=== PATIENT | female | born 1995 | race Caucasian/White ===

== ENCOUNTER 2024-08-19 01:00 | Inpatient (IN) ==
[2024-08-19] MEDS ORDERED: Lidocaine 1% VIAL 10 MG/ML 30 ML VIAL INJ PRN (02:13)
[2024-08-19 02:54] LABS: ABS Lymphocytes 1.4 10^3/uL (1.0-4.8); ABS Monocytes 0.4 10^3/uL (0.0-0.9); ABS Neutrophils 10.2 10^3/uL (1.5-7.6); Eosinophil % 0.1 %; Hematocrit 38.1 % (35-45); Hemoglobin 13.1 g/dL (11.5-14.3); Lymphocyte % 11.3 %; Mean Corpuscular Hgb Conc 34.4 g/dL (31-36); Mean Corpuscular Volume 92.9 fL (80-97); Mean Platelet Volume 7.8 fL (7.5-11.2); Platelet Count 232 10^3/uL (150-450); Red Cell Distribution Width 12.8 % (12-17); White Blood Count 12.1 10^3/uL (3.8-11.8)
[2024-08-19] MEDS ORDERED: Glycerin ADULT 2.4 gm SUPP PR PRN (03:05)
[2024-08-19 03:21] LABS: Urine Benzodiazepine Screen None Detected (None Detect); Urine Cannabinoids Screen None Detected (None Detect); Urine Opiates Screen None Detected (None Detect)
[2024-08-19] MEDS ORDERED: Lactated Ringers 1000 ml BAG 1,000 ML IV SCH (04:00)
[2024-08-19] MEDS: Witch Hazel PAD JAR TOPICAL PRN (05:52)
[2024-08-19] MEDS: Dibucaine 1% OINT 28.35 GM TUBE PR PRN (05:52)
[2024-08-19] MEDS: Oxytocin in LR 20,000 MILLI.UNIT/1,000 ML BAG IV ONE (16:08)
[2024-08-19] MEDS: Buffered Lidocaine 1% SYRIN 1 ml INTRADERM ONE (16:08)
[2024-08-19] MEDS: Lactated Ringers 1000 ml BAG 1,000 ML IV ONE (16:08)
[2024-08-19] MEDS: Oxytocin in LR 20,000 MILLI.UNIT/1,000 ML BAG IV SCH (16:09)
[2024-08-19] MEDS: Lactated Ringers 1000 ml BAG 1,000 ML IV SCH (16:09)
[2024-08-20 07:23] LABS: ABS Eosinophils 0.1 10^3/uL (0.0-0.5); ABS Lymphocytes 2.4 10^3/uL (1.0-4.8); ABS Monocytes 0.9 10^3/uL (0.0-0.9); ABS Neutrophils 8.8 10^3/uL (1.5-7.6); Eosinophil % 1.2 %; Hematocrit 37.1 % (35-45); Hemoglobin 12.7 g/dL (11.5-14.3); Lymphocyte % 19.4 %; Mean Corpuscular Hemoglobin 32.1 pg (27-33); Mean Corpuscular Hgb Conc 34.1 g/dL (31-36); Mean Corpuscular Volume 93.9 fL (80-97); Mean Platelet Volume 7.7 fL (7.5-11.2); Platelet Count 202 10^3/uL (150-450); Red Blood Count 3.95 10^6/uL (3.63-4.92); Red Cell Distribution Width 13.2 % (12-17); White Blood Count 12.3 10^3/uL (3.8-11.8)
[2024-08-20 08:13] VITALS: BP 114/70
== END 2024-08-20 13:29 | disposition home or self-care (01) | DRG 560 ==
LOC: MCHOBOUT 01:00 → MCHOB 01:52
PROVIDERS: ADMIT Obstetrics & Gynecology; ATTEND Obstetrics & Gynecology